=== PATIENT | male | born 1965 | race Caucasian/White ===

== ENCOUNTER 2017-11-30 05:30 | Inpatient (IN) | payer OTHER ==
[~2017-11-30] VITALS: Ht 162.6 cm; Wt 80.0 kg
[2017-11-30] MEDS ORDERED: ASPI-183 PO (05:50)
[2017-11-30 05:53] VITALS: BP 178/118; PULSE 110; RESP 20; TEMP 95.7; O2SAT 93
[2017-11-30] MEDS ORDERED: FUROSEMIDE 100 MG/10 ML VIAL IVP ONE (06:00)
[2017-11-30] MEDS ORDERED: SODIUM CHLORIDE 0.9% FLUSH 10 ML FLUSH IVF PRN (06:00)
--- NOTE | 2017-11-30 06:03 | PD ---
HPI Chief Complaint: Respiratory Symptoms Time Seen by Provider: 05:57 Travel History International Travel<30 days: No Contact w/Intl Traveler<30days: No Traveled to known affect area: No History of Present Illness HPI The patient is a 52-year-old male with a history of congestive heart failure who complains of shortness of breath for 2 days. He does have a cough but denies any fever or chills. He is a nonsmoker. He is a diet-controlled diabetic and states his sugars have been going up. He has noticed considerable swelling in both of his legs and he states that the same thing happened when he had an episode of congestive heart failure in the past. He is a [facility] patient of Dr. Morel. [facility] Social History Tobacco Use: No Allergies-Medications (Allergen,Severity, Reaction): Coded Allergies: No Known Allergies (Unverified , 11/30/17) Reported Meds & Prescriptions Reported Meds & Active Scripts Active Reported Aspirin 325 Mg Tab 650 Mg PO DAILY Review of Systems Except as stated in HPI: all other systems reviewed are Neg Physical Exam Narrative GENERAL: The patient is alert, oriented 3 in no respiratory distress. His pulse rate is 110 and blood pressure 170/118 but the rest of his vital signs are normal. SKIN: Focused skin assessment warm/dry. HEAD: Atraumatic. Normocephalic. EYES: Pupils equal and round. No scleral icterus. No injection or drainage. ENT: No nasal bleeding or discharge. Mucous membranes pink and moist. NECK: Trachea midline. No JVD. CARDIOVASCULAR: Regular rate and rhythm. No murmur appreciated. RESPIRATORY: No accessory muscle use. Clear to auscultation. Breath sounds equal bilaterally. GASTROINTESTINAL: Abdomen soft, non-tender, nondistended. Hepatic and splenic margins not palpable. MUSCULOSKELETAL: No obvious deformities. No clubbing. No cyanosis. There is 3 + bilateral lower extremity pitting edema. NEUROLOGICAL: Awake and alert. No obvious cranial nerve deficits. Motor grossly within normal limits. Normal speech. PSYCHIATRIC: Appropriate mood and affect; insight and judgment normal. Data Data Last Documented VS Vital Signs Date Time Temp Pulse Resp B/P (MAP) Pulse Ox O2 Delivery O2 Flow Rate FiO2 11/30/17 06:21 110 24 95 Nasal Cannula 2.00 11/30/17 06:16 97.8 178/118 (138) Orders Orders Complete Blood Count With Diff (11/30/17 05:57) Comprehensive Metabolic Panel (11/30/17 05:57) B-Type Natriuretic Peptide (11/30/17 05:57) Magnesium (Mg) (11/30/17 05:57) Troponin I (11/30/17 05:57) Urinalysis - C+S If Indicated (11/30/17 05:57) Influenzae A/B Antigen (11/30/17 05:57) Iv Access Insert/Monitor (11/30/17 05:57) Ecg Monitoring (11/30/17 05:57) Oximetry (11/30/17 05:57) Oxygen Administration (11/30/17 05:57) Chest, Pa & Lat (11/30/17 05:57) Sodium Chloride 0.9% Flush (Ns Flush) (11/30/17 06:00) Furosemide Inj (Lasix Inj) (11/30/17 06:00) Lipase (11/30/17 06:14) Labs Laboratory Tests Test 11/30/17 06:09 White Blood Count 8.8 TH/MM3 Red Blood Count 5.13 MIL/MM3 Hemoglobin 15.5 GM/DL Hematocrit 47.7 % Mean Corpuscular Volume 93.0 FL Mean Corpuscular Hemoglobin 30.2 PG Mean Corpuscular Hemoglobin Concent 32.4 % Red Cell Distribution Width 14.1 % Platelet Count 258 TH/MM3 Mean Platelet Volume 9.9 FL Neutrophils (%) (Auto) 50.9 % Lymphocytes (%) (Auto) 35.6 % Monocytes (%) (Auto) 10.0 % Eosinophils (%) (Auto) 1.6 % Basophils (%) (Auto) 1.9 % Neutrophils # (Auto) 4.5 TH/MM3 Lymphocytes # (Auto) 3.1 TH/MM3 Monocytes # (Auto) 0.9 TH/MM3 Eosinophils # (Auto) 0.1 TH/MM3 Basophils # (Auto) 0.2 TH/MM3 CBC Comment DIFF FINAL Differential Comment Blood Urea Nitrogen 18 MG/DL Creatinine 1.10 MG/DL Random Glucose 207 MG/DL Total Protein 7.3 GM/DL Albumin 3.5 GM/DL Calcium Level 9.1 MG/DL Magnesium Level 1.8 MG/DL Alkaline Phosphatase 79 U/L Aspartate Amino Transf (AST/SGOT) 28 U/L Alanine Aminotransferase (ALT/SGPT) 45 U/L Total Bilirubin 0.7 MG/DL Sodium Level 132 MEQ/L Potassium Level 4.2 MEQ/L Chloride Level 96 MEQ/L Carbon Dioxide Level 27.8 MEQ/L Anion Gap 8 MEQ/L Estimat Glomerular Filtration Rate 70 ML/MIN Troponin I 0.09 NG/ML B-Type Natriuretic Peptide 976 PG/ML MDM Medical Decision Making Medical Screen Exam Complete: Yes Emergency Medical Condition: Yes Medical Record Reviewed: Yes Interpretation(s) The complete metabolic profile shows a GFR of 70, glucose 207 with sodium 132 but is otherwise unremarkable. The troponin I is 0.09. The chest x-ray shows pulmonary edema. The influenza A/B antigen is negative for flu a and flu B antigen. Differential Diagnosis Congestive heart failure or pulmonary edema, bronchitis, hypoxemia, pneumonia, electrolyte disorder, acute coronary syndrome Narrative Course The patient has congestive heart failure with pulmonary edema. He is already been given 80 mg of Lasix shortly after he came in. He has had this before in the past. His troponin I is elevated but this is likely due because of the congestive heart failure. He has no chest pain and this is likely not due to primary heart damage. I discussed the patient with Dr. Roberto aguero, the patient will be admitted to him. Diagnosis Primary Impression: Pulmonary edema with congestive heart failure Admitting Information Admitting Physician Requests: Admit Lonny Hui MD Nov 30, 2017 06:03
[2017-11-30 06:16] VITALS: BP 178/118; PULSE 110; RESP 20; TEMP 97.8; O2SAT 95
[2017-11-30 06:16] LABS: AUTOMATED NEUTROPHIL # 4.5 TH/MM3 (1.8-7.7); BASOPHIL # 0.2 TH/MM3 (0-0.2); BASOPHIL % 1.9 % (0.0-2.0); EOSINOPHIL # 0.1 TH/MM3 (0-0.4); EOSINOPHIL % 1.6 % (0.0-4.0); HEMATOCRIT 47.7 % (39.0-51.0); HEMOGLOBIN 15.5 GM/DL (13.0-17.0); LYMPH % 35.6 % (9.0-44.0); LYMPHOCYTE # 3.1 TH/MM3 (1.0-4.8); MEAN CORPUSCULAR HEMOGLOBIN 30.2 PG (27.0-34.0); MEAN CORPUSCULAR HGB CONC 32.4 % (32.0-36.0); MEAN PLATELET VOLUME 9.9 FL (7.0-11.0); MONOCYTE # 0.9 TH/MM3 (0-0.9); NEUT % 50.9 % (16.0-70.0); PLATELET COUNT 258 TH/MM3 (150-450); RED BLOOD COUNT 5.13 MIL/MM3 (4.50-5.90); RED CELL DISTRIBUTION WIDTH 14.1 % (11.6-17.2); WHITE BLOOD COUNT 8.8 TH/MM3 (4.0-11.0)
[2017-11-30 06:31] LABS: CHLORIDE 96 MEQ/L (98-107); SODIUM (NA) 132 MEQ/L (136-145)
[2017-11-30 06:34] LABS: CALCIUM 9.1 MG/DL (8.5-10.1)
[2017-11-30 06:35] LABS: ALBUMIN 3.5 GM/DL (3.4-5.0); BICARBONATE 27.8 MEQ/L (21.0-32.0); BLOOD UREA NITROGEN 18 MG/DL (7-18); GLUCOSE,RANDOM 207 MG/DL (74-106); MAGNESIUM 1.8 MG/DL (1.5-2.5)
[2017-11-30 06:38] LABS: ALT (GPT) 45 U/L (12-78); AST (GOT) 28 U/L (15-37); GLOMERULAR FILTRATION RATE 70 ML/MIN (>89)
[2017-11-30 06:40] LABS: TOTAL BILIRUBIN ADULT 0.7 MG/DL (0.2-1.0); TOTAL PROTEIN 7.3 GM/DL (6.4-8.2)
[2017-11-30 06:41] LABS: ALKALINE PHOSPHATASE 79 U/L (45-117)
[2017-11-30 06:43] LABS: TROPONIN I 0.09 NG/ML (0.02-0.05)
--- NOTE | 2017-11-30 06:47 | RADRPT ---
EXAM DATE/TIME: 11/30/2017 06:34 [facility] COMPARISON: No previous studies available for comparison. INDICATIONS : Shortness of breath. MEDICAL HISTORY : None. SURGICAL HISTORY : None. ENCOUNTER: Initial ACUITY: 1 day PAIN SCORE: 0/10 LOCATION: Bilateral chest FINDINGS: PA and lateral views of the chest demonstrate increased interstitial markings bilaterally with small bilateral effusions. These findings would suggest pulmonary edema. The heart size is mildly enlarged. . The bony structures are grossly intact. No prior study for comparison. CONCLUSION: Pulmonary edema. Leighton Kelley MD on November 30, 2017 at 6:43 Board Certified Radiologist. This report was verified electronically.
[2017-11-30 07:00] VITALS: BP 156/106; PULSE 101; RESP 18; TEMP 97.7; O2SAT 97
[2017-11-30 07:37] LABS: BILIRUBIN, URINE NEG (NEG); BLOOD, URINE TRACE (NEG); GLUCOSE,URINE NEG (NEG); KETONE, URINE NEG (NEG); NITRITE,URINE NEG (NEG); PH, URINE 6.5 (5.0-8.5); URINE LEUKOCYTE ESTERASE NEG (NEG)
[2017-11-30] MEDS ORDERED: GLUCAGON 1 MG/ML VIAL OTHER PRN (07:45)
[2017-11-30] MEDS ORDERED: DEXTROSE 50% IN WATER 50 ML VIAL(D50) IV PUSH PRN (07:45)
[2017-11-30] MEDS ORDERED: SODIUM CHLORIDE 0.9% FLUSH 10 ML FLUSH IV FLUSH PRN (07:45)
[2017-11-30 07:48] LABS: RBC, URINE 0-3 /hpf (0-3); SQUAMOUS EPITHELIAL CELL URINE 0-5 /hpf (0-5); URINE COLOR YELLOW (YELLW/STRAW)
[2017-11-30] MEDS: ENOXAPARIN SODIUM 40 MG/0.4 ML SYRINGE SQ SCH (08:45)
[2017-11-30] MEDS: FUROSEMIDE 40 MG/4 ML VIAL IV PUSH SCH ×2 (08:45→17:41)
[2017-11-30] MEDS: INSULIN ASPART SUPPLEMENTAL SCALE SQ SCH ×4 (08:45→20:23)
[2017-11-30] MEDS: ASPIRIN 81 MG CHEW TAB CHEW SCH (08:46)
[2017-11-30] MEDS: LISINOPRIL 10 MG TAB PO SCH (08:53)
[2017-11-30] MEDS: SODIUM CHLORIDE 0.9% FLUSH 10 ML FLUSH IV FLUSH SCH ×2 (09:11→19:41)
--- NOTE | 2017-11-30 09:39 | MH ---
cc: PHI MARTINEZ M.D. DATE OF ADMISSION: 11/30/2017 ADMISSION DIAGNOSIS 1. Acute congestive heart failure. 2. Hypertension. 3. Type 2 diabetes mellitus. 4. Hyperlipidemia. PERTINENT HISTORY This is a 52-year-old white male who stated he had congestive heart failure about 7 years ago with the cause of it not fully delineated. He had a cardiac cath done back then in [place], [place] that apparently showed no coronary artery disease, according to the patient. He was on medication for quite some time then he moved down here about 4 years ago and he stopped all his medicine he was on about [id number] years ago and has only been on aspirin which he takes maybe 2-3 days a week. He states that in the last 2 days he has been having more problems with shortness of breath when he lies flat and he will wake up with shortness of breath. He denies any exertional shortness of breath. He denies any chest pain. No fever, chills or cough. He had some increased swelling in his legs as well. He used to be on Lasix, he does not remember the dose. He was on ramipril. He is being admitted for CHF and diuretic therapy. PAST MEDICAL HISTORY 1. He has had CHF in the past. He denies any heart attack, coronary artery disease. 2. He has had type 2 diabetes mellitus. He used to be on metformin and maybe another medication, he could not remember but he stopped that a couple years ago and just been managing his diabetes with diet. 3. He has been on cholesterol medicine atorvastatin in the past for hyperlipidemia but has stopped that as well. 4. He was on blood pressure medicine also. He denies any lung disease, liver or kidney disease, peptic ulcer disease, colon disease. No stroke or seizures. PAST SURGICAL HISTORY 1. Tonsillectomy and adenoidectomy. 2. Cardiac cath about 7 years ago. ALLERGIES None. MEDICATIONS He is on aspirin 325 mg [id number] days a week. FAMILY HISTORY His mother is living at 76, in [facility]. Father at 54 of respiratory failure, he had history of heart transplant. SOCIAL HISTORY He has never smoked. He has [id number] beers a week. 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 He is once. REVIEW OF SYSTEMS GENERAL: No fever, chills, sweats. HEENT:. No runny nose, sore throat, vision problem. CARDIOVASCULAR: As mentioned. PULMONARY: With the shortness of breath. No cough. GI: No nausea, vomiting or melena, rectal bleeding, constipation, diarrhea. : Without complaints. No hematuria, dysuria. EXTREMITIES: With slight swelling that he has had. SKIN: Without rash. PSYCHIATRY: Without complaints. NEURO: Without any focal complaints. PHYSICAL EXAMINATION GENERAL: Pleasant white male, looks comfortable, in no distress. VITAL SIGNS: His BP has been up in the ED 178/118, 156/106, pulse is around 101 to 110. Respiratory rate is 18. Currently his O2 sat on 2 liters is 97%. HEENT: TMs clear. Nose negative. Mouth without inflammation or lesion. NECK: Without JVD. No bruit. No adenopathy. No thyromegaly. HEART: Regular rate and rhythm. He has a grade 2/6 systolic murmur at the left lower sternal border. LUNGS: Lungs with some bibasilar crackles. ABDOMEN: Abdomen is soft, nontender, no masses. EXTREMITIES: Pulses palpated in both feet. He has some trace edema. No calf tenderness. SKIN: Negative. NEURO: Oriented x3. Cranial nerves intact. Motor sensory intact. LABORATORY DATA White count was 8.8, hemoglobin 15.5. His sodium was 132, potassium 4.2, chloride was 96, CO2 27.8, BUN 18, creatinine 1.1, glucose was 207. AST, ALT, alkaline phosphatase normal. Troponin was 0.09. BNP was 976. Lipase was 258, total protein and albumin normal. IMAGING STUDIES Chest x-ray was read as pulmonary edema with increased interstitial markings bilaterally and small effusions with the heart being mildly enlarged. ASSESSMENT As noted. PLAN The patient is being admitted. Will maintain him on IV Lasix. Will add lisinopril for blood pressure and heart failure. We will consult cardiology, he has seen Dr. Nelson a few years ago but not since then. Will do sliding scale coverage for now on his blood sugars. Will put him on Lovenox for DVT prophylaxis. Will obtain a 2-D echocardiogram. Will order a lipid profile for the morning and repeat chest x-ray tomorrow. He will have some followup troponins and EKGs, but his troponin is probably up related to his CHF. MD NI Ontiveros/MIHAI /7:51 AM /9:18 AM
[2017-11-30 09:50] VITALS: BP 152/92; PULSE 94; RESP 18; O2SAT 98
[2017-11-30 11:01] VITALS: PULSE 98
--- NOTE | 2017-11-30 12:55 | MB ---
cc: CECILE VERNON DATE OF CONSULTATION: 11/30/2017. REASON FOR CONSULTATION: Congestive heart failure. HISTORY OF PRESENT ILLNESS: This is a 52-year-old gentleman. He has a prior history of nonischemic cardiomyopathy with recovered ejection fraction back in 2012. I had seen him back in our office in an office visit one time back in 2013. He has also history of hypertension, diabetes, and hyperlipidemia. He caught sort of a chest cold about two to three weeks ago and then over course now of the past two to three days he has noticed some progressive shortness of breath and a little bit of edema in the legs. He came in. Chest x-ray showed some mild interstitial edema. He was diagnosed with acute congestive heart failure and given a diuretic. He has had good urine output and symptomatically feels better. PAST MEDICAL HISTORY: 1. Prior congestive heart failure. 2. Prior nonischemic cardiomyopathy although echocardiogram in 2013 showed normal ejection fraction. 3. Hyperlipidemia. 4. Hypertension. MEDICATIONS: 1. Aspirin 325 milligrams a day. ALLERGIES: NONE. FAMILY HISTORY: He denies any family history of early cardiac disease or sudden cardiac . SOCIAL HISTORY: Never smoked. He drinks only about two to three beers a week. REVIEW OF SYSTEMS: His twelve-point review of systems was performed and is negative unless otherwise noted in the history of present illness. PHYSICAL EXAMINATION: VITAL SIGNS: Temperature is 97, pulse 94, blood pressure 152/92 mmHg. GENERAL: Alert and oriented times three and in no acute distress. HEAD, EYES, EARS, NOSE, THROAT: Exam shows pupils reactive to light and accommodation. Extraocular muscles are intact. NECK: No elevation in jugular venous distention. No thyromegaly or lymphadenopathy. No carotid bruits. LUNGS: Clear to auscultation bilaterally. CARDIOVASCULAR: Regular rate and rhythm without murmurs, rubs or gallops. ABDOMEN: The abdomen is soft, nontender and nondistended. Good bowel sounds. No hepatosplenomegaly. EXTREMITIES: No cyanosis, clubbing or edema. Good peripheral pulses. NEUROLOGIC: Cranial nerves intact. Motor and sensory grossly intact. LABS: WBCs 8.8, hemoglobin 15.5, platelet count 258,000. Sodium 132, potassium 4.2, BUN 15, creatinine is 1.10. Troponin is 0.07. ASSESSMENT: 1. Congestive heart failure. 2. Hypertension. 3. Hyperlipidemia. 4. Diabetes. PLAN: The patient symptomatically is already doing better after a single dose of diuretic therapy. Not sure this is diastolic or systolic. He does not have a good dietary regimen and does have a lot of salt intake. Blood pressure is well-controlled now. We will await echocardiogram. If the echocardiogram shows normal ejection fraction, then it is just a matter of minimizing salt, watching his blood pressure and sending him home on maybe a low-dose diuretic potentially as needed. His intermediate stroke level is not really anything terribly concerning since he is not having any chest pain symptoms. We could even do an outpatient stress test. If his echocardiogram shows reduced ejection fraction, then he will need a full ischemic workup and consider initiation of AKI inhibitor as such. I will talk with Dr. Nascimento. Will see if we can help to make decisions remotely or if he needs to have follow up tomorrow. MD MARIA ESTHER Verduzco/BERNICE /12:21 PM /12:40 PM
--- NOTE | 2017-11-30 17:12 | EKG ---
Date Performed: 11/30/2017 Time Performed: 06:22:48 PTAGE: 52 years EKG: SINUS TACHYCARDIA WITH OCCASIONAL SUPRAVENTRICULAR PREMATURE COMPLEXES POSSIBLE LEFT ATRIAL ENLARGEMENT BORDERLINE LEFT AXIS DEVIATION NONSPECIFIC ST & T-WAVE ABNORMALITY ABNORMAL RHYTHM ECG NO PREVIOUS TRACING DOCTOR: Callum Carter Interpretating Date/Time 11/30/2017 17:11:17
[2017-11-30 20:00] VITALS: BP 148/102; PULSE 86; RESP 18; TEMP 96.6; O2SAT 98
[2017-12-01] VITALS (7 sets, daily range): BP systolic 125–141; BP diastolic 88–98; PULSE 82–97; RESP 15–17; TEMP 96–98.3; O2SAT 94–98
[2017-12-01 06:33] LABS: CHLORIDE 98 MEQ/L (98-107); SODIUM (NA) 137 MEQ/L (136-145)
--- NOTE | 2017-12-01 06:36 | RADRPT ---
EXAM DATE/TIME: 12/01/2017 06:11 [facility] COMPARISON: CHEST PA & LAT, November 30, 2017, 6:34. INDICATIONS : Shortness of breath. MEDICAL HISTORY : None. SURGICAL HISTORY : None. ENCOUNTER: Subsequent ACUITY: 2 days PAIN SCORE: 0/10 LOCATION: Bilateral chest FINDINGS: The heart size is normal. There is a mild bilateral pleural effusions being greater on the right. The re is mild increased density at the bases bilaterally. CONCLUSION: 1. Mild bilateral pleural effusions. 2. Mild atelectasis or consolidation at the bases. Ren Blackburn MD on December 01, 2017 at 6:32 Board Certified Radiologist. This report was verified electronically.
[2017-12-01 06:42] LABS: CALCIUM 8.4 MG/DL (8.5-10.1)
[2017-12-01 06:43] LABS: BICARBONATE 30.9 MEQ/L (21.0-32.0)
[2017-12-01 06:47] LABS: BLOOD UREA NITROGEN 22 MG/DL (7-18); GLOMERULAR FILTRATION RATE 70 ML/MIN (>89); GLUCOSE,RANDOM 88 MG/DL (74-106)
--- NOTE | 2017-12-01 07:38 | PD.CARD.PN ---
Subjective Subjective Remarks Patient reports shortness of breath and leg swelling are significantly improved. No chest pain or palpitations. Telemetry showed 2 different 9 beat runs of nonsustained V. tach overnight. Objective Medications Current Medications Medications (Trade) Dose Ordered Sig/Sonam Route Start Time Stop Time Status Last Admin (NS Flush) 2 ml BID IV FLUSH 11/30/17 09:00 11/30/17 09:11 (NS Flush) 2 ml UNSCH PRN IV FLUSH 11/30/17 07:45 (Aspirin Chew) 81 mg DAILY CHEW 11/30/17 09:00 11/30/17 08:46 (Prinivil) 10 mg DAILY PO 11/30/17 09:00 11/30/17 08:53 (Lovenox Inj) 40 mg Q24H SQ 11/30/17 09:00 11/30/17 08:45 (NovoLOG SUPPLEMENTAL SCALE) 1 ACHS SLIDING SCALE SQ 11/30/17 08:00 11/30/17 17:43 (D50w (Vial) Inj) 50 ml UNSCH PRN IV PUSH 11/30/17 07:45 (Glucagon Inj) 1 mg UNSCH PRN OTHER 11/30/17 07:45 (Lasix Inj) 40 mg BID@ IV PUSH 11/30/17 09:00 11/30/17 17:41 Vital Signs / I&O Vital Signs Date Time Temp Pulse Resp B/P (MAP) Pulse Ox O2 Delivery O2 Flow Rate FiO2 12/01/17 04:00 97.4 91 17 139/88 (105) 95 12/01/17 00:00 97.1 82 17 141/90 (107) 97 11/30/17 20:00 96.6 86 18 148/102 (117) 98 11/30/17 11:01 98 11/30/17 10:45 11/30/17 09:50 94 18 152/92 (112) 98 Room Air I/O 11/30/17 11/30/17 11/30/17 12/01/17 12/01/17 12/01/17 07:00 15:00 23:00 07:00 15:00 23:00 Output Total 250 ml 3250 ml 500 ml 1900 ml Balance -250 ml -3250 ml -500 ml -1900 ml Output Urine Total 250 ml 3250 ml 500 ml 1900 ml # Voids 1 4 Physical Exam GENERAL: Well-developed well-nourished. In no acute distress. NECK: No carotid bruits. No JVD. CARDIOVASCULAR: Regular rate and rhythm. No murmur appreciated. RESPIRATORY: No accessory muscle use. Diminished breath sounds in all lung linder. No crackles. MUSCULOSKELETAL: No clubbing or cyanosis. Trace edema. NEUROLOGICAL: Awake and alert. Normal speech. Laboratory Laboratory Tests Test 11/30/17 08:45 11/30/17 13:55 12/01/17 05:25 Troponin I 0.07 NG/ML 0.09 NG/ML Blood Urea Nitrogen 22 MG/DL Creatinine 1.10 MG/DL Random Glucose 88 MG/DL Calcium Level 8.4 MG/DL Sodium Level 137 MEQ/L Potassium Level 3.5 MEQ/L Chloride Level 98 MEQ/L Carbon Dioxide Level 30.9 MEQ/L Anion Gap 8 MEQ/L Estimat Glomerular Filtration Rate 70 ML/MIN B-Type Natriuretic Peptide 546 PG/ML Imaging Last 24 hours Impressions Chest X-Ray 12/01/17 0600 Signed Impressions: Service Date/Time: Friday, December 01, 2017 06:11 - CONCLUSION: 1. Mild bilateral pleural effusions. 2. Mild atelectasis or consolidation at the bases. Ren Blackburn MD Assessment and Plan Assessment and Plan 52-year-old male with a prior history of nonischemic cardiomyopathy with recovered ejection fraction back in 2012, also with history of hypertension, diabetes, and hyperlipidemia. The patient presented with progressive shortness of breath, lower extremity edema, and chest x-ray showed some mild interstitial edema. Acute CHF exacerbation: Unclear if this is diastolic or systolic. Good diuresis and symptomatic improvement with IV Lasix. Echo performed, results pending. AKI inhibitor added. Ischemic evaluation with Lexiscan today. Hypertension: Better controlled. Continue lisinopril. NSVT: Possible LifeVest if Lexiscan negative. Rob Beltran Dec 01, 2017 07:38
[2017-12-01] MEDS: INSULIN ASPART SUPPLEMENTAL SCALE SQ SCH ×4 (08:00→20:41)
[2017-12-01] MEDS: SODIUM CHLORIDE 0.9% FLUSH 10 ML FLUSH IV FLUSH SCH ×2 (08:50→20:42)
[2017-12-01] MEDS: ENOXAPARIN SODIUM 40 MG/0.4 ML SYRINGE SQ SCH (08:51)
[2017-12-01] MEDS: LISINOPRIL 10 MG TAB PO SCH (08:51)
[2017-12-01] MEDS: ASPIRIN 81 MG CHEW TAB CHEW SCH (08:51)
[2017-12-01] MEDS: FUROSEMIDE 40 MG/4 ML VIAL IV PUSH SCH ×2 (08:51→17:45)
[2017-12-01] MEDS ORDERED: REGADENOSON INJ 0.4 MG/5 ML SYR IV ONE (10:35)
[2017-12-01 10:41] LABS: CHOLESTEROL 130 MG/DL (120-200); TRIGLYCERIDES 109 MG/DL (42-150)
[2017-12-01 10:43] LABS: CHOLESTEROL/ HDL RATIO 4.34 RATIO; HDL CHOLESTEROL 29.9 MG/DL (40.0-60.0); LDL CHOLESTEROL 78 MG/DL (0-99)
[2017-12-01 11:47] LABS: HEMOGLOBIN A1C 7.6 % (4.3-6.0)
--- NOTE | 2017-12-01 11:59 | RADRPT ---
EXAM DATE/TIME: 12/01/2017 10:23 [facility] COMPARISON: No previous studies available for comparison. INDICATIONS : Shortness of breath with chest pressure for one day. Congestive heart failure. DOSE: 25.5 mCi Tc99m Myoview at stress. 8.7 mCi Tc99m Myoview at rest. 0.4 mg Lexiscan STRESS SYMPTOMS: None noted. EJECTION FRACTION: 19% MEDICAL HISTORY : Hypertension. Diabetes mellitus type 2. SURGICAL HISTORY : Tonsillectomy. ENCOUNTER: Initial ACUITY: 1 day PAIN SCALE: 0/10 LOCATION: chest TECHNIQUE: The patient underwent pharmacologic stress with infusion of prescribed dose. Continuous ECG tracing was monitored during stress. Gated SPECT imaging was performed after stress and conventional SPECT i maging was performed at rest. The examination was performed on a SPECT/CT scanner, both attenuation and non-corrected datasets were reviewed. FINDINGS: DISTRIBUTION: The maximum perfused segment at stress is in the anterolateral wall. PERFUSION STUDY: The examination demonstrates dilation of the ventricular cavity. There is a moderate severity, modera te-sized on the reversible perfusion defect involving the septum and portions of anterior wall. GATED STUDY: The examination demonstrates a global hypokinesis with ejection fraction estimated at only 19%. CONCLUSION: 1. Dilation of the ventricular cavity with a moderate severity reversible perfusion defect involving the septum and portions of anteroseptal wall. Myocardial ischemia is not excluded on the basis of thi s examination. 2. Ejection fraction estimated at only 19% with global hypokinesis. RISK CATEGORY: High (>3% Annual Mortality Rate) Vincent Trujillo MD on December 01, 2017 at 11:53 Board Certified Radiologist. This report was verified electronically.
--- NOTE | 2017-12-01 13:44 | HHI.PR ---
Subjective Remarks He states his swelling has resolved and his breathing is much better than yesterday. He was noted to have had some nonsustained V-tach on his monitor of around 9 beats on two occasions. Objective Vitals Vital Signs Date Time Temp Pulse Resp B/P (MAP) Pulse Ox O2 Delivery O2 Flow Rate FiO2 12/01/17 08:00 98.1 90 17 131/98 (109) 96 12/01/17 04:00 97.4 91 17 139/88 (105) 95 12/01/17 00:00 97.1 82 17 141/90 (107) 97 11/30/17 20:00 96.6 86 18 148/102 (117) 98 12/01/17 12/01/17 12/02/17 15:00 23:00 07:00 Output Total 1825 ml Balance -1825 ml Output Urine Total 1825 ml Result Diagram: 11/30/17 0609 12/01/17 0525 Other Results Laboratory Tests Test 11/30/17 06:09 11/30/17 07:22 11/30/17 08:45 11/30/17 13:55 White Blood Count 8.8 TH/MM3 Red Blood Count 5.13 MIL/MM3 Hemoglobin 15.5 GM/DL Hematocrit 47.7 % Mean Corpuscular Volume 93.0 FL Mean Corpuscular Hemoglobin 30.2 PG Mean Corpuscular Hemoglobin Concent 32.4 % Red Cell Distribution Width 14.1 % Platelet Count 258 TH/MM3 Mean Platelet Volume 9.9 FL Neutrophils (%) (Auto) 50.9 % Lymphocytes (%) (Auto) 35.6 % Monocytes (%) (Auto) 10.0 % Eosinophils (%) (Auto) 1.6 % Basophils (%) (Auto) 1.9 % Neutrophils # (Auto) 4.5 TH/MM3 Lymphocytes # (Auto) 3.1 TH/MM3 Monocytes # (Auto) 0.9 TH/MM3 Eosinophils # (Auto) 0.1 TH/MM3 Basophils # (Auto) 0.2 TH/MM3 CBC Comment DIFF FINAL Differential Comment Blood Urea Nitrogen 18 MG/DL Creatinine 1.10 MG/DL Random Glucose 207 MG/DL Total Protein 7.3 GM/DL Albumin 3.5 GM/DL Calcium Level 9.1 MG/DL Magnesium Level 1.8 MG/DL Alkaline Phosphatase 79 U/L Aspartate Amino Transf (AST/SGOT) 28 U/L Alanine Aminotransferase (ALT/SGPT) 45 U/L Total Bilirubin 0.7 MG/DL Sodium Level 132 MEQ/L Potassium Level 4.2 MEQ/L Chloride Level 96 MEQ/L Carbon Dioxide Level 27.8 MEQ/L Anion Gap 8 MEQ/L Estimat Glomerular Filtration Rate 70 ML/MIN Troponin I 0.09 NG/ML 0.07 NG/ML 0.09 NG/ML B-Type Natriuretic Peptide 976 PG/ML Lipase 258 U/L Urine Collection Type CLEAN CATCH Urine Color YELLOW Urine Turbidity CC Urine pH 6.5 Urine Specific [place] 1.009 Urine Protein NEG mg/dL Urine Glucose (UA) NEG mg/dL Urine Ketones NEG mg/dL Urine Occult Blood TRACE Urine Nitrite NEG Urine Bilirubin NEG Urine Leukocyte Esterase NEG Urine RBC 0-3 /hpf Urine Squamous Epithelial Cells 0-5 /hpf Microscopic Urinalysis Comment CULT NOT INDICATED Urine Collection Time 07:22 Test 12/01/17 05:25 Blood Urea Nitrogen 22 MG/DL Creatinine 1.10 MG/DL Random Glucose 88 MG/DL Calcium Level 8.4 MG/DL Sodium Level 137 MEQ/L Potassium Level 3.5 MEQ/L Chloride Level 98 MEQ/L Carbon Dioxide Level 30.9 MEQ/L Anion Gap 8 MEQ/L Estimat Glomerular Filtration Rate 70 ML/MIN Hemoglobin A1c 7.6 % B-Type Natriuretic Peptide 546 PG/ML Triglycerides Level 109 MG/DL Cholesterol Level 130 MG/DL LDL Cholesterol 78 MG/DL HDL Cholesterol 29.9 MG/DL Cholesterol/HDL Ratio 4.34 RATIO Imaging Last Impressions Chest X-Ray 12/01/17 0600 Signed Impressions: Service Date/Time: Friday, December 01, 2017 06:11 - CONCLUSION: 1. Mild bilateral pleural effusions. 2. Mild atelectasis or consolidation at the bases. Ren Blackburn MD Myocardial Perfusion Scan Nuc Med 12/01/17 0000 Signed Impressions: Service Date/Time: Friday, December 01, 2017 10:23 - CONCLUSION: 1. Dilation of the ventricular cavity with a moderate severity reversible perfusion defect involving the septum and portions of anteroseptal wall. Myocardial ischemia is not excluded on the basis of this examination. 2. Ejection fraction estimated at only 19%% with global hypokinesis. RISK CATEGORY: High (>3%% Annual Mortality Rate) Vincent Trujillo MD 2D echo report is still pending Objective Remarks Exam: Pleasant white male in no distress HEENT: Pupils equal, no scleral icterus, mouth negative Neck: No bruits Heart: RRR with grade 1/6 systolic murmur at the left lower sternal border Lung: Minimal basilar crackles however improved from yesterday Abdomen: Soft, nontender Neuro: Negative A/P Assessment and Plan Assessment: --Acute congestive heart failure with markedly reduced LVEF at 19% on myocardial perfusion scan --Abnormal myocardial perfusion scan --Hypertension --Type 2 diabetes mellitus --Paroxysmal ventricular tachycardia Plan: I will defer further evaluation of his abnormal myocardial scan to procedure tech and recommendations in regard to his paroxysmal V-tach to cardiology. Continue Furosemide and AKI inhibitor. I will defer to cardiology about whether Carvedilol should be added or not. His lipid profile is good. Roberto Nascimento MD Dec 01, 2017 13:44
[2017-12-02] VITALS (9 sets, daily range): BP systolic 110–127; BP diastolic 85–100; PULSE 86–98; RESP 18–20; TEMP 96.1–98.3; O2SAT 94–98
--- NOTE | 2017-12-02 07:35 | PD.CARD.PN ---
Subjective Subjective Remarks Shortness of breath and leg swelling are back to baseline. No chest pain or palpitations. Awaiting a bed at the main hospital for transfer for cath. Objective Medications Current Medications Medications (Trade) Dose Ordered Sig/Sonam Route Start Time Stop Time Status Last Admin (NS Flush) 2 ml BID IV FLUSH 11/30/17 09:00 12/01/17 20:42 (NS Flush) 2 ml UNSCH PRN IV FLUSH 11/30/17 07:45 (Aspirin Chew) 81 mg DAILY CHEW 11/30/17 09:00 12/01/17 08:51 (Prinivil) 10 mg DAILY PO 11/30/17 09:00 12/01/17 08:51 (Lovenox Inj) 40 mg Q24H SQ 11/30/17 09:00 12/01/17 08:51 (NovoLOG SUPPLEMENTAL SCALE) 1 ACHS SLIDING SCALE SQ 11/30/17 08:00 11/30/17 17:43 (D50w (Vial) Inj) 50 ml UNSCH PRN IV PUSH 11/30/17 07:45 (Glucagon Inj) 1 mg UNSCH PRN OTHER 11/30/17 07:45 (Lasix Inj) 40 mg BID@18 IV PUSH 11/30/17 09:00 12/01/17 17:45 Vital Signs / I&O Vital Signs Date Time Temp Pulse Resp B/P (MAP) Pulse Ox O2 Delivery O2 Flow Rate FiO2 12/02/17 04:00 96.2 93 20 122/100 (107) 96 12/02/17 00:00 96.1 91 18 124/92 (103) 97 12/01/17 23:00 92 12/01/17 20:00 96.0 97 16 141/98 (112) 94 12/01/17 16:00 98.3 87 17 131/94 (106) 98 12/01/17 12:00 97.8 85 15 125/92 (103) 96 12/01/17 08:00 98.1 90 17 131/98 (109) 96 12/01/17 08:00 93 I/O 12/01/17 12/01/17 12/01/17 12/02/17 12/02/17 12/02/17 07:00 15:00 23:00 07:00 15:00 23:00 Intake Total 480 ml 480 ml Output Total 1900 ml 1825 ml 1375 ml Balance -1900 ml -1825 ml -895 ml 480 ml Intake Oral 480 ml 480 ml Output Urine Total 1900 ml 1825 ml 1375 ml # Voids 4 # Bowel Movements 1 0 Physical Exam GENERAL: Well-developed well-nourished. In no acute distress. NECK: No carotid bruits. No JVD. CARDIOVASCULAR: Regular rate and rhythm. No murmur appreciated. RESPIRATORY: No accessory muscle use. Diminished breath sounds in all lung linder. No crackles. MUSCULOSKELETAL: No clubbing or cyanosis. Trace edema. NEUROLOGICAL: Awake and alert. Normal speech. Imaging Last Impressions Chest X-Ray 12/01/17 0600 Signed Impressions: Service Date/Time: Friday, December 01, 2017 06:11 - CONCLUSION: 1. Mild bilateral pleural effusions. 2. Mild atelectasis or consolidation at the bases. Ren Blackburn MD Myocardial Perfusion Scan Nuc Med 12/01/17 0000 Signed Impressions: Service Date/Time: Friday, December 01, 2017 10:23 - CONCLUSION: 1. Dilation of the ventricular cavity with a moderate severity reversible perfusion defect involving the septum and portions of anteroseptal wall. Myocardial ischemia is not excluded on the basis of this examination. 2. Ejection fraction estimated at only 19%% with global hypokinesis. RISK CATEGORY: High (>3%% Annual Mortality Rate) Vincent Trujillo MD Assessment and Plan Assessment and Plan 52-year-old male with a prior history of nonischemic cardiomyopathy with recovered ejection fraction back in 2012, also with history of hypertension, diabetes, and hyperlipidemia. The patient presented with progressive shortness of breath, lower extremity edema, and chest x-ray showed some mild interstitial edema. Acute systolic CHF exacerbation: Good diuresis and symptomatic improvement with IV Lasix. Echo performed, results pending. AKI inhibitor added. Ischemic cardiomyopathy?: Lexiscan with possible moderate area of ischemia. Evaluate with cardiac catheterization. Hypertension: Better controlled. Continue lisinopril. NSVT: No further episodes overnight. LifeVest? Rob Beltran Dec 02, 2017 07:35
[2017-12-02] MEDS: INSULIN ASPART SUPPLEMENTAL SCALE SQ SCH ×4 (08:00→21:25)
--- NOTE | 2017-12-02 08:03 | HHI.PR ---
Subjective Remarks No shortness of breath. No chest pain. He is going up to [facility] main hospital this morning for cardiac cath. Objective Vitals Vital Signs Date Time Temp Pulse Resp B/P (MAP) Pulse Ox O2 Delivery O2 Flow Rate FiO2 12/02/17 04:00 96.2 93 20 122/100 (107) 96 12/02/17 00:00 96.1 91 18 124/92 (103) 97 12/01/17 23:00 92 12/01/17 20:00 96.0 97 16 141/98 (112) 94 12/01/17 16:00 98.3 87 17 131/94 (106) 98 12/01/17 12:00 97.8 85 15 125/92 (103) 96 12/01/17 08:00 98.1 90 17 131/98 (109) 96 12/01/17 08:00 93 Result Diagram: 11/30/17 0609 12/01/17 0525 Other Results Laboratory Tests Test 11/30/17 08:45 11/30/17 13:55 12/01/17 05:25 Troponin I 0.07 NG/ML 0.09 NG/ML Blood Urea Nitrogen 22 MG/DL Creatinine 1.10 MG/DL Random Glucose 88 MG/DL Calcium Level 8.4 MG/DL Sodium Level 137 MEQ/L Potassium Level 3.5 MEQ/L Chloride Level 98 MEQ/L Carbon Dioxide Level 30.9 MEQ/L Anion Gap 8 MEQ/L Estimat Glomerular Filtration Rate 70 ML/MIN Hemoglobin A1c 7.6 % B-Type Natriuretic Peptide 546 PG/ML Triglycerides Level 109 MG/DL Cholesterol Level 130 MG/DL LDL Cholesterol 78 MG/DL HDL Cholesterol 29.9 MG/DL Cholesterol/HDL Ratio 4.34 RATIO Imaging Last Impressions Chest X-Ray 12/01/17 0600 Signed Impressions: Service Date/Time: Friday, December 01, 2017 06:11 - CONCLUSION: 1. Mild bilateral pleural effusions. 2. Mild atelectasis or consolidation at the bases. Ren Blackburn MD Myocardial Perfusion Scan Nuc Med 12/01/17 0000 Signed Impressions: Service Date/Time: Friday, December 01, 2017 10:23 - CONCLUSION: 1. Dilation of the ventricular cavity with a moderate severity reversible perfusion defect involving the septum and portions of anteroseptal wall. Myocardial ischemia is not excluded on the basis of this examination. 2. Ejection fraction estimated at only 19%% with global hypokinesis. RISK CATEGORY: High (>3%% Annual Mortality Rate) Vincent Trujillo MD 2D echo report is still pending Objective Remarks Exam: Pleasant white male in no distress HEENT: Pupils equal, no scleral icterus, mouth negative Neck: No bruits Heart: RRR with grade 1/6 systolic murmur at the left lower sternal border Lung: Minimal basilar crackles Abdomen: Soft, nontender Neuro: Negative A/P Assessment and Plan Assessment: --Acute congestive heart failure with markedly reduced LVEF at 19% on myocardial perfusion scan --Abnormal myocardial perfusion scan --Hypertension --Type 2 diabetes mellitus --Paroxysmal ventricular tachycardia Plan: Patient is being transferred to [facility] this morning for a cardiac cath by Dr Nelson. He will be under Dr Jane service while up there and is aware of this. Continue current treatment. Roberto Nascimento MD Dec 02, 2017 08:03
[2017-12-02] MEDS: LISINOPRIL 10 MG TAB PO SCH (08:11)
[2017-12-02] MEDS: ASPIRIN 81 MG CHEW TAB CHEW SCH (08:11)
[2017-12-02] MEDS: SODIUM CHLORIDE 0.9% FLUSH 10 ML FLUSH IV FLUSH SCH ×2 (08:12→20:07)
[2017-12-02] MEDS: FUROSEMIDE 40 MG/4 ML VIAL IV PUSH SCH (08:12)
[2017-12-02] MEDS ORDERED: HEPARIN-NS/PF INJ 1,000 ML ONE (10:46)
[2017-12-02] MEDS ORDERED: MIDAZOLAM HCL 2 MG/2 ML VIAL ONE ×2 (10:46→11:48)
[2017-12-02] MEDS ORDERED: HEPARIN SODIUM - IV 10,000 UNITS/10 ML VIAL ONE (10:47)
[2017-12-02] MEDS ORDERED: BIVALIRUDIN 250 MG VIAL ONE (11:24)
[2017-12-02] MEDS ORDERED: CLOPIDOGREL 300 MG TAB ONE (12:02)
[2017-12-02] MEDS ORDERED: MISC INFORMATION XX ONE (12:15)
[2017-12-02] MEDS ORDERED: LIDOCAINE 2% JELLY 30 ML TUBE TOP PRN (12:15)
[2017-12-02] MEDS ORDERED: DEFIB EXTERNAL (12:17)
[2017-12-02] MEDS ORDERED: IOHEXOL 350 MG/ML 50 ML BTL (for Cath Lab) OTHER ONE (12:45)
[2017-12-02] MEDS ORDERED: PILL SPLITTER OTHER PRN (12:45)
[2017-12-02] MEDS ORDERED: IOHEXOL 350 MG/ML 100 ML BTL (for Cath Lab) OTHER ONE (12:45)
[2017-12-02] MEDS ORDERED: BACITRACIN OINT 0.9 GM PKT TOP ONE (13:00)
[2017-12-02] MEDS ORDERED: BIVALIRUDIN INJ 250 MG in SODIUM CHLORIDE 0.9% INJ 50 ML IV SCH (13:00)
--- NOTE | 2017-12-02 14:43 | MA ---
cc: CECILE VERNON DATE 12/02/2017 INDICATION Cardiomyopathy, abnormal stress test. PROCEDURE PERFORMED 1. Fluoroscopy with interpretation 2. Coronary angiography 3. Left heart catheterization 4. Percutaneous intervention with drug-eluting stents to the diagonal branch and proximal left anterior descending coronary artery. METHOD The risks, benefits and alternatives discussed with the patient, the patient understood, consented to the procedure. The patient brought into the catheterization lab, placed on the catheterization table. The right wrist was prepped and draped in a sterile fashion. The right wrist was anesthetized with 2% lidocaine. The right radial artery was cannulated and a 6-Burkinan, 7 centimeter sheath was placed without difficulty. Intraventricular hemodynamics measured at 107/7 mmHg. Left end-diastolic pressure of 13 mmHg. There is no significant aortic stenosis by transaortic valvular pullback gradient. CORONARY ANGIOGRAPHY 1. Left main coronary is angiographically normal. 2. Left anterior descending coronary artery is a very large caliber sized vessel with an 80% proximal stenosis right at the bifurcation of a moderate-sized diagonal branch which has a 90% stenosis present. The mid left anterior descending coronary artery has 30% stenosis throughout. 3. Left circumflex coronary has minor luminal irregularities. 4. Right coronary artery is a dominant vessel giving rise to a posterior descending branch. The right coronary has minor luminal irregularities. PERCUTANEOUS INTERVENTION The left coronary circulation was selectively engaged with a 6-Burkinan AL-2 guide catheter. A 0.014 inch, 180 cm Terumo run-through wire was navigated down the distal left anterior descending coronary. A second 0.014 inch 180 centimeter Terumo run-through wire was navigated down the first diagonal branch. A 4.0 x 12 mm RX balloon was advanced down to the proximal left anterior descending coronary and deployed. A 3.0 x 12 mm RX balloon was advanced down to the proximal diagonal branch and deployed. Repeat angiography showed still severe residual stenosis. There did appear to be a proximal dissection flap in the diagonal which was non-flow limiting. A 4.0 x 16 mm RX synergy drug-eluting stent was advanced down the proximal left anterior descending coronary artery and a 3.0 x 12 mm RX Integrity drug-eluting stent was advanced down to the first diagonal branch and deployed individually, but in a kissing fashion. Repeat angiography showed no residual stenosis, YUSRA-III flow. Both wires removed. Guide catheter removed and Angiomax was administered throughout the entire procedure to maintain appropriate anticoagulation. The patient tolerated the procedure well without any post-procedural complications. CONCLUSIONS 1. Severe proximal left anterior descending and diagonal branch vessel disease. 2. Successful percutaneous intervention with drug-eluting stents to the proximal left anterior descending and diagonal Branches. 3. Normal left-sided filling pressures. PLAN We will monitor the patient closely for any post procedural complications. Initiated on aspirin, statin, Plavix, beta-norman, and AKI inhibitor. We will check a PTY12 to make sure he has appropriate platelet inhibition given the proximal LAD and diagonal branch stents in the territories provided. Anticipate discharge tomorrow. May consider LifeVest. MD MARIA ESTHER Verduzco/LUIS /12:09 PM /12:36 PM
[2017-12-02] MEDS: MORPHINE SULFATE 4 MG/ML INJ IV PUSH PRN (17:46)
[2017-12-02] MEDS: CARVEDILOL 3.125 MG TAB PO SCH (20:05)
[2017-12-02] MEDS ORDERED: ATORVASTATIN 40 MG TAB PO SCH (21:00)
[2017-12-03] VITALS (10 sets, daily range): BP systolic 91–122; BP diastolic 72–89; PULSE 88–98; RESP 16–20; TEMP 97.6–98.2; O2SAT 94–98
[2017-12-03] MEDS: MORPHINE SULFATE 4 MG/ML INJ IV PUSH PRN (01:00)
[2017-12-03 06:43] LABS: AUTOMATED NEUTROPHIL # 3.7 TH/MM3 (1.8-7.7); BASOPHIL % 0.6 % (0.0-2.0); EOSINOPHIL # 0.3 TH/MM3 (0-0.4); HEMATOCRIT 44.5 % (39.0-51.0); HEMOGLOBIN 15.1 GM/DL (13.0-17.0); LYMPH % 25.4 % (9.0-44.0); LYMPHOCYTE # 1.7 TH/MM3 (1.0-4.8); MEAN CELL VOLUME 93.9 FL (80.0-100.0); MEAN CORPUSCULAR HEMOGLOBIN 31.9 PG (27.0-34.0); MEAN CORPUSCULAR HGB CONC 33.9 % (32.0-36.0); MEAN PLATELET VOLUME 9.4 FL (7.0-11.0); MONO % 13.5 % (0.0-8.0); MONOCYTE # 0.9 TH/MM3 (0-0.9); NEUT % 56.5 % (16.0-70.0); PLATELET COUNT 201 TH/MM3 (150-450); RED BLOOD COUNT 4.74 MIL/MM3 (4.50-5.90); RED CELL DISTRIBUTION WIDTH 14.3 % (11.6-17.2); WHITE BLOOD COUNT 6.6 TH/MM3 (4.0-11.0)
[2017-12-03 06:59] LABS: BICARBONATE 32.6 MEQ/L (21.0-32.0); CALCIUM 8.4 MG/DL (8.5-10.1); CREATININE 1.14 MG/DL (0.60-1.30)
[2017-12-03 07:02] LABS: CHOLESTEROL/ HDL RATIO 4.38 RATIO; HDL CHOLESTEROL 31.7 MG/DL (40.0-60.0)
[2017-12-03] MEDS: INSULIN ASPART SUPPLEMENTAL SCALE SQ SCH ×3 (08:00→17:00)
[2017-12-03] MEDS ORDERED: PLAV75TA29 PO (08:19)
[2017-12-03] MEDS ORDERED: POTA10TA2 PO (08:19)
[2017-12-03] MEDS ORDERED: ATOR40TA16 PO (08:19)
[2017-12-03] MEDS ORDERED: ASPI81 CHEW (08:19)
[2017-12-03] MEDS ORDERED: CARV3.125 PO (08:19)
[2017-12-03] MEDS ORDERED: FURO20TA PO (08:19)
[2017-12-03] MEDS: CARVEDILOL 3.125 MG TAB PO SCH (08:28)
[2017-12-03] MEDS: SODIUM CHLORIDE 0.9% FLUSH 10 ML FLUSH IV FLUSH SCH (08:29)
[2017-12-03] MEDS: ASPIRIN 81 MG CHEW TAB CHEW SCH (08:29)
[2017-12-03] MEDS ORDERED: POTASSIUM CHLORIDE 20 MEQ CONTROLLED RELEASE TAB PO ONE (08:30)
--- NOTE | 2017-12-03 08:49 | PD.CARD.PN ---
Subjective Subjective Remarks feeling well, no chest pain. breathing well. 7 beat of Vtach noted on tele overnight (Lucia Perry) Objective Medications Current Medications Medications (Trade) Dose Ordered Sig/Sonam Route Start Time Stop Time Status Last Admin (NS Flush) 2 ml BID IV FLUSH 11/30/17 09:00 12/03/17 08:29 (NS Flush) 2 ml UNSCH PRN IV FLUSH 11/30/17 07:45 (Aspirin Chew) 81 mg DAILY CHEW 11/30/17 09:00 12/03/17 08:29 (NovoLOG SUPPLEMENTAL SCALE) 1 ACHS SLIDING SCALE SQ 11/30/17 08:00 12/02/17 21:25 (D50w (Vial) Inj) 50 ml UNSCH PRN IV PUSH 11/30/17 07:45 (Glucagon Inj) 1 mg UNSCH PRN OTHER 11/30/17 07:45 (Morphine Inj) 2 mg Q30M PRN IV PUSH 12/02/17 13:00 12/03/17 01:00 (Plavix) 75 mg DAILY PO 12/03/17 09:00 12/03/17 08:28 (Xylocaine 2% Jelly) 1 applic UNSCH X1 PRN TOP 12/02/17 12:15 12/03/17 12:14 (Prinivil) 5 mg DAILY PO 12/03/17 09:00 12/03/17 08:28 (Lasix) 20 mg DAILY PO 12/03/17 09:00 12/03/17 08:29 (Lipitor) 40 mg HS PO 12/02/17 21:00 12/02/17 20:04 (Coreg) 3.125 mg Q12HR PO 12/02/17 21:00 12/03/17 08:28 (Pill Splitter) 1 ea UNSCH PRN OTHER 12/02/17 12:45 (KCl) 10 meq DAILY PO 12/04/17 09:00 Vital Signs / I&O Vital Signs Date Time Temp Pulse Resp B/P (MAP) Pulse Ox O2 Delivery O2 Flow Rate FiO2 12/03/17 06:00 98.2 89 20 110/82 (91) 98 12/03/17 00:00 97.9 93 20 110/79 (89) 98 12/02/17 23:00 87 1/16/18 20:00 98.3 92 20 110/85 (93) 98 12/02/17 18:00 98 12/02/17 17:00 86 12/02/17 16:15 98.2 86 20 127/95 (106) 94 12/02/17 12:31 98 Nasal Cannula 2.00 I/O 12/02/17 12/02/17 12/02/17 12/03/17 12/03/17 12/03/17 07:00 15:00 23:00 07:00 15:00 23:00 Intake Total 480 ml 240 ml 480 ml Output Total 550 ml 675 ml Balance 480 ml -310 ml -195 ml Intake Oral 480 ml 240 ml 480 ml Output Urine Total 550 ml 675 ml # Voids 4 # Bowel Movements 0 Physical Exam GENERAL: SKIN: Warm and dry. HEAD: Atraumatic. Normocephalic. EYES: Pupils equal and round. . ENT: No nasal bleeding or discharge. NECK: Trachea midline. No JVD. CARDIOVASCULAR: Regular rate and rhythm. no murmurs RESPIRATORY: No accessory muscle use. Clear to auscultation. Breath sounds equal bilaterally. GASTROINTESTINAL: Abdomen soft, non-tender, nondistended. Hepatic and splenic margins not palpable. MUSCULOSKELETAL: Extremities without clubbing, cyanosis, or edema. No obvious deformities. NEUROLOGICAL: Awake and alert. No obvious cranial nerve deficits. Motor grossly within normal limits. Five out of 5 muscle strength in the arms and legs. Normal speech. PSYCHIATRIC: Appropriate mood and affect; insight and judgment normal. Laboratory Laboratory Tests Test 12/03/17 04:38 12/03/17 04:58 Platelet Function P2Y12 React Units 98 PRU Blood Urea Nitrogen 18 MG/DL Creatinine 1.14 MG/DL Random Glucose 124 MG/DL Calcium Level 8.4 MG/DL Sodium Level 134 MEQ/L Potassium Level 3.4 MEQ/L Chloride Level 95 MEQ/L Carbon Dioxide Level 32.6 MEQ/L Anion Gap 6 MEQ/L Estimat Glomerular Filtration Rate 67 ML/MIN Total Creatine Kinase 42 U/L Triglycerides Level 110 MG/DL Cholesterol Level 139 MG/DL LDL Cholesterol 85 MG/DL HDL Cholesterol 31.7 MG/DL Cholesterol/HDL Ratio 4.38 RATIO White Blood Count 6.6 TH/MM3 Red Blood Count 4.74 MIL/MM3 Hemoglobin 15.1 GM/DL Hematocrit 44.5 % Mean Corpuscular Volume 93.9 FL Mean Corpuscular Hemoglobin 31.9 PG Mean Corpuscular Hemoglobin Concent 33.9 % Red Cell Distribution Width 14.3 % Platelet Count 201 TH/MM3 Mean Platelet Volume 9.4 FL Neutrophils (%) (Auto) 56.5 % Lymphocytes (%) (Auto) 25.4 % Monocytes (%) (Auto) 13.5 % Eosinophils (%) (Auto) 4.0 % Basophils (%) (Auto) 0.6 % Neutrophils # (Auto) 3.7 TH/MM3 Lymphocytes # (Auto) 1.7 TH/MM3 Monocytes # (Auto) 0.9 TH/MM3 Eosinophils # (Auto) 0.3 TH/MM3 Basophils # (Auto) 0.0 TH/MM3 CBC Comment DIFF FINAL Differential Comment (Lucia Perry) Assessment and Plan Problem List: (1) Pulmonary edema with congestive heart failure ICD Codes: I50.1 - Left ventricular failure, unspecified Status: Acute (2) Ischemic cardiomyopathy ICD Codes: I25.5 - Ischemic cardiomyopathy Assessment and Plan 52 yo WM with NICM with recovered EF in 2012, HTN, DM and HLD presented with acute on chronic CHF. CAD- s/p PCI (12/02/17) LILLY prox LAD and diagonal. cont asa, statin, plavix, bb, ACEi PTY12 assay = 98 NSVT- ~7 beat overnight, patient asymptomatic. consider LifeVest (Lucia Perry) Assessment and Plan ICM PCI LAD/DIAG lifevest ordered. cont bb. fu echo 3 months p2y12 good OK for DC FU in OPD in 2-4 weeks monitor daily weights (Waldemar Nelson MD) Lucia Perry Dec 03, 2017 08:49 Waldemar Nelson MD Dec 03, 2017 09:28
[2017-12-03] MEDS ORDERED: FUROSEMIDE 20 MG TAB PO SCH (09:00)
[2017-12-03] MEDS ORDERED: CLOPIDOGREL 75 MG TAB PO SCH (09:00)
[2017-12-03] MEDS ORDERED: LISINOPRIL 10 MG TAB PO SCH (09:00)
--- NOTE | 2017-12-03 09:35 | ECHRPT ---
Indication: CONCLUSIONS Moderately dilated left ventricle. Wall thickness is normal. The left ventricular systolic function is severely reduced with an estimated ejection fraction in th e range of 20-25%. There are findings consistent with dilated cardiomyopathy. The right ventricle is mildly dilated. The left atrial size is ehjbxpvk-ei-kyozusgw dilated. The right atrial size is moderately dilated. No atrial level shunt is demonstrated by color flow Doppler interrogation. Zdkj-pt-aceoqase mitral valve regurgitation. Aortic valve sclerosis is present. Mild aortic valve regurgitation. There is mild tricuspid valve regurgitation. The estimated pulmonary arterial pressure is 54.6 mmHg. Trivial pulmonary valve regurgitation. A moderate left sided pleural effusion is noted. Moderately dilated left ventricle. Wall thickness is normal. The left ventricular systolic function is severely reduced with an estimated ejection fraction in th e range of 20-25%. There are findings consistent with dilated cardiomyopathy. The right ventricle is mildly dilated. The left atrial size is kbypgnqs-su-hrkegequ dilated. The right atrial size is moderately dilated. No atrial level shunt is demonstrated by color flow Doppler interrogation. Flco-gu-gegjomha mitral valve regurgitation. Aortic valve sclerosis is present. Mild aortic valve regurgitation. There is mild tricuspid valve regurgitation. The estimated pulmonary arterial pressure is 54.6 mmHg. Trivial pulmonary valve regurgitation. A moderate left sided pleural effusion is noted. BP: 152 / 92 HR: Rhythm: Sinus MEASUREMENTS (Male / Female) Normal Values Technical Quality:Fair 2D ECHO LV Diastolic Diameter PLAX 6.3 cm 4.2 - 5.9 / 3.9 - 5.3 cm LV Systolic Diameter PLAX 5.8 cm IVS Diastolic Thickness 0.9 cm 0.6 - 1.0 / 0.6 - 0.9 cm LVPW Diastolic Thickness 0.9 cm 0.6 - 1.0 / 0.6 - 0.9 cm LV Relative Wall Thickness 0.3 RV Internal Dim ED PLAX 3.3 cm LVOT Diameter 2.3 cm Aortic Root Diameter 3.2 cm LA Systolic Diameter LX 4.3 cm 3.0 - 4.0 / 2.7 - 3.8 cm M-MODE AV Cusp Separation MM 1.6 cm DOPPLER AV Peak Velocity 125.0 cm/s AV Peak Gradient 6.3 mmHg AV Mean Gradient 3.0 mmHg AV Velocity Time Integral 19.2 cm AI Peak Velocity 361.0 cm/s AI Peak Gradient 52.1 mmHg AI Pressure Half Time 441.0 ms LVOT Peak Velocity 112.0 cm/s LVOT Peak Gradient 5.0 mmHg LVOT Velocity Time Integral 17.3 cm AV Area Cont Eq vti 3.7 cm AV Area Cont Eq pk 3.7 cm Mitral E Point Velocity 66.6 cm/s Mitral A Point Velocity 47.9 cm/s Mitral E to A Ratio 1.4 LV E' Lateral Velocity 5.9 cm/s Mitral E to LV E' Lateral Ratio 11.4 LV E' Septal Velocity 4.1 cm/s Mitral E to LV E' Septal Ratio 16.3 TR Peak Velocity 334.0 cm/s TR Peak Gradient 44.6 mmHg Right Atrial Pressure 10.0 mmHg Pulmonary Artery Systolic Pressu 54.6 mmHg Right Ventricular Systolic Press 54.6 mmHg PV Peak Velocity 54.1 cm/s PV Peak Gradient 1.2 mmHg FINDINGS LEFT VENTRICLE Moderately dilated left ventricle. Wall thickness is normal. The left ventricular systolic function is severely reduced with an estimated ejection fraction in th e range of 20-25%. There are findings consistent with dilated cardiomyopathy. RIGHT VENTRICLE The right ventricle is mildly dilated. LEFT ATRIUM The left atrial size is tnfksqvu-lv-xymxorgc dilated. RIGHT ATRIUM The right atrial size is moderately dilated. ATRIAL SEPTUM No atrial level shunt is demonstrated by color flow Doppler interrogation. AORTA The aortic root and proximal ascending aorta are normal in size on limited imaging. MITRAL VALVE Wgir-yk-crfkcaor mitral valve regurgitation. AORTIC VALVE Aortic valve sclerosis is present. Mild aortic valve regurgitation. TRICUSPID VALVE There is mild tricuspid valve regurgitation. The estimated pulmonary arterial pressure is 54.6 mmHg. PULMONARY VALVE Trivial pulmonary valve regurgitation. VESSELS The inferior vena cava is normal in size. PERICARDIUM No pericardial effusion. A moderate left sided pleural effusion is noted. Waldemar Nelson MD, FACC Edited by: Curverider CV Special Equipment Technician (Electronically Signed) Final Date:30 November 2017 19:41 Amended: 03 December 2017 09:34
--- NOTE | 2017-12-03 17:57 | HHI.DS ---
Discharge Summary Admission Date Nov 30, 2017 at 07:12 Discharge Date: Dec 03, 2017 Admitting Diagnosis congestive heart failure with pulmonary edema (1) SOB (shortness of breath) on exertion Diagnosis: Principal ICD Codes: R06.02 - Shortness of breath Status: Acute (2) Ischemic cardiomyopathy Diagnosis: Principal ICD Codes: I25.5 - Ischemic cardiomyopathy Status: Acute Consultants Dr. Nelson Procedures 12/02 cardiac catheterization with placement of stents to the proximal LAD and diagonal by Dr. Nelson Brief History This is a 52-year-old white male who stated he had congestive heart failure about 7 years ago with the cause of it not fully delineated. He had a cardiac cath done back then in [place], [place] that apparently showed no coronary artery disease, according to the patient. He was on medication for quite some time then he moved down here about 4 years ago and he stopped all his medicine he was on about [id number]-iligo years ago and has only been on aspirin which he takes maybe 2-3 days a week. He states that in the last 2 days he has been having more problems with shortness of breath when he lies flat and he will wake up with shortness of breath. He denies any exertional shortness of breath. He denies any chest pain. No fever, chills or cough. He had some increased swelling in his legs as well. He used to be on Lasix, he does not remember the dose. He was on ramipril. He is being admitted for CHF and diuretic therapy. CBC/BMP: 12/03/17 0458 12/03/17 0438 Significant Findings Laboratory Tests Test 12/01/17 05:25 12/03/17 04:38 12/03/17 04:58 Blood Urea Nitrogen 22 MG/DL (7-18) Calcium Level 8.4 MG/DL (8.5-10.1) 8.4 MG/DL (8.5-10.1) Estimat Glomerular Filtration Rate 70 ML/MIN (>89) 67 ML/MIN (>89) Hemoglobin A1c 7.6 % (4.3-6.0) B-Type Natriuretic Peptide 546 PG/ML (0-100) HDL Cholesterol 29.9 MG/DL (40.0-60.0) 31.7 MG/DL (40.0-60.0) Platelet Function P2Y12 React Units 98 PRU (194-418) Random Glucose 124 MG/DL (74-106) Sodium Level 134 MEQ/L (136-145) Potassium Level 3.4 MEQ/L (3.5-5.1) Chloride Level 95 MEQ/L (98-107) Carbon Dioxide Level 32.6 MEQ/L (21.0-32.0) Monocytes (%) (Auto) 13.5 % (0.0-8.0) Imaging Last Impressions Chest X-Ray 12/01/17 0600 Signed Impressions: Service Date/Time: Friday, December 01, 2017 06:11 - CONCLUSION: 1. Mild bilateral pleural effusions. 2. Mild atelectasis or consolidation at the bases. Ren Blackburn MD Myocardial Perfusion Scan Nuc Med 12/01/17 0000 Signed Impressions: Service Date/Time: Friday, December 01, 2017 10:23 - CONCLUSION: 1. Dilation of the ventricular cavity with a moderate severity reversible perfusion defect involving the septum and portions of anteroseptal wall. Myocardial ischemia is not excluded on the basis of this examination. 2. Ejection fraction estimated at only 19%% with global hypokinesis. RISK CATEGORY: High (>3%% Annual Mortality Rate) Vincent Trujillo MD PE at Discharge GENERAL: This is a well-nourished, well-developed patient, in no apparent distress. CARDIOVASCULAR: Regular rate and rhythm RESPIRATORY: Clear to auscultation. Breath sounds equal bilaterally. GASTROINTESTINAL: Abdomen soft, non-tender, nondistended. Normal active bowel sounds MUSCULOSKELETAL: Extremities without clubbing, cyanosis, or edema. NEURO: Alert & Oriented x4 to person, place, time, situation. Moves all ext x4 Hospital Course Patient with --Acute congestive heart failure with markedly reduced LVEF at 19% on myocardial perfusion scan --Abnormal myocardial perfusion scan --Hypertension --Type 2 diabetes mellitus --Paroxysmal ventricular tachycardia Plan: patient s/p cardiac cath by Dr Nelson 12/02 cardiac catheterization with placement of stents to the proximal LAD and diagonal by Dr. Nelson cont asa, statin, plavix, bb, ACEi patient had 7 beat run of V tach patient will need lifevest prior to DC cardiology recommending follow up echo 3 months cardiology also cleared for DC monitor daily weights Pt Condition on Discharge: Stable Discharge Disposition: Discharge Home Discharge Instructions DIET: Follow Instructions for: Heart Healthy Diet, Diabetic Diet Activities you can perform: See Additionl Instruction Activities to Avoid: Lifting/Bending, Strenuous Activity Follow up Referrals: Cardiology - [address] Nelson PCP Follow-up - [address] Morel New Medications: Defibrillator Jacket (Defibrillator Jacket) 1 Ea Device EA EXTERNAL ONCE for ICM, #1 3 Refills Energy = 150 Joules; VT Threshold = 150 BPM; VF Threshold = 200 BPM Use up to 90 days only Lisinopril (Lisinopril) 5 Mg Tab 5 MG PO DAILY for Blood Pressure Management, #30 TAB 0 Refills Potassium Chloride ER (Potassium Chloride ER) 10 Meq Tab 10 MEQ PO DAILY for Electrolyte Replacement, #30 TAB 0 Refills Aspirin (Tgt Aspirin) 81 Mg Chw 81 MG CHEW DAILY for Blood Clot Prevention, #30 EA 0 Refills Atorvastatin (Atorvastatin) 40 Mg Tab 40 MG PO HS for Cholesterol Management, #30 TAB 0 Refills Carvedilol (Coreg) 3.125 Mg Tab 3.125 MG PO Q12HR for heart/blood pressure, #60 TAB 0 Refills Clopidogrel (Plavix) 75 Mg Tab 75 MG PO DAILY for Blood Clot Prevention, #30 TAB 0 Refills Furosemide (Furosemide) 20 Mg Tab 20 MG PO DAILY for fluid retention/CHF, #30 TAB 0 Refills Discontinued Medications: Aspirin (Aspirin) 325 Mg Tab 650 MG PO DAILY, #30 TAB 0 Refills Additional Information Patient examined. Assessment and plan formulated with Theresa Mosquera PA-C. I agree with the above. Theresa Mosquera Dec 03, 2017 17:57 Olivier Jane DO Dec 05, 2017 00:45
[2017-12-03] MEDS ORDERED: LISI-519 PO (18:02)
[2017-12-04] MEDS ORDERED: POTASSIUM CHLORIDE 10 MEQ CONTROLLED RELEASE TAB PO SCH (09:00)
--- NOTE | 2017-12-04 23:28 | EKG ---
Date Performed: 12/03/2017 Time Performed: 04:58:36 PTAGE: 52 years EKG: Sinus arrhythmia Possible left atrial abnormality Possible left anterior fascicular block L ateral T wave changes may be due to hypertrophy and/or ischemia Abnormal ECG PREVIOUS TRACING : 11/30/2017 06.22 Since previous tracing, no significant change noted DOCTOR: Clement Rodriguez Interpretating Date/Time 12/04/2017 23:28:20
== END 2017-12-03 19:40 | disposition home or self-care (01) | DRG 247 ==
LOC: PHED 05:30 → PHEDA 07:12 → PH3B 10:50 → HDIC 12-02 11:23 → HCIS 12-02 16:16
PROVIDERS: ADMIT Hospitalist; ATTEND Hospitalist
PROC: 3E0F7GC Introduction of Other Therapeutic Substance into Respiratory Tract, Via Natural or Artificial Opening (ICD-10-PCS; 2017-11-30)
PROC: 4A023N7 Measurement of Cardiac Sampling and Pressure, Left Heart, Percutaneous Approach (ICD-10-PCS; 2017-12-02)
PROC: B2111ZZ Fluoroscopy of Multiple Coronary Arteries using Low Osmolar Contrast (ICD-10-PCS; 2017-12-02)
PROC: 027135Z Dilation of Coronary Artery, Two Arteries with Two Drug-eluting Intraluminal Devices, Percutaneous Approach (ICD-10-PCS; principal; 2017-12-02 12:15)
DX: I11.0 Hypertensive heart disease with heart failure (principal); I50.23 Acute on chronic systolic (congestive) heart failure; I47.2 Ventricular tachycardia; I25.5 Ischemic cardiomyopathy; E11.9 Type 2 diabetes mellitus without complications; I25.10 Atherosclerotic heart disease of native coronary artery without angina pectoris; E78.5 Hyperlipidemia, unspecified; Z84.1 Family history of disorders of kidney and ureter
CPT/HCPCS: 71046; 78452; 80048; 80053; 80061; 81001; 82550; 82948; 83036; 83690; 83735; 83880; 84484; 85025; 85576; 87804; 92928; 92929; 93005; 93017; 93306; 93458; 96374; 99152; 99153; A9502; C1725; C1769; C1874; C1887; C1893; J0583; J1644; J1650; J1815; J1940; J2250; J2270; J2785; J3010; Q9967